=== PATIENT | female | born 1925 | race Caucasian/White ===

== ENCOUNTER 2017-05-22 23:45 | Inpatient (IN) | payer BC, MEDICARE ==
[~2017-05-22] VITALS: Ht 160 cm; Wt 73.9 kg
[2017-05-23 00:10] VITALS: BP 52/63
[2017-05-23 00:44] LABS: BASOPHILS % (AUTO) 1.2 % (0.0-2.0); LYMPHOCYTES % (AUTO) 17.2 % (20.0-45.0); MEAN CORPUSCULAR HEMOGLOBIN 29.5 PG (27.0-31.0); MEAN CORPUSCULAR HGB CONC 31.4 G/DL (32.0-36.0); MEAN CORPUSCULAR VOLUME 94 FL (80-99); MONOCYTES % (AUTO) 10.2 % (1.0-10.0); NEUTROPHILS % (AUTO) 69.5 % (45.0-75.0); PLATELET COUNT 314 K/UL (150-450); RED BLOOD COUNT 3.68 M/UL (4.20-5.40); WHITE BLOOD COUNT 11.2 K/UL (4.8-10.8)
[2017-05-23 01:01] LABS: ALANINE AMINOTRANSFERASE 20 U/L (12-78); ALBUMIN/GLOBULIN RATIO 0.6 (1.0-2.7); ANION GAP 7 mmol/L (5-15); ASPARTATE AMINO TRANSFERASE 30 U/L (15-37); CARBON DIOXIDE 29 MMOL/L (21-32); CHLORIDE 100 MMOL/L (98-107); CREATININE 0.7 MG/DL (0.55-1.30); POTASSIUM 4.2 MMOL/L (3.5-5.1); SODIUM 136 MMOL/L (136-145); TOTAL PROTEIN 6.5 G/DL (6.4-8.2)
[2017-05-23 01:10] LABS: CKMB 0.5 NG/ML (0.0-3.6)
[2017-05-23] MEDS ORDERED: Pantoprazole Inj IVP ONE (01:45)
--- NOTE | 2017-05-23 01:52 | Emergency Room Report ---
History of Present Illness General Chief Complaint: Chest Pain Source: Medical Record Present Illness HPI [id number] BIBEMS for chest pressure today Associated with hiccups Denies SOB, nausea/vomiting, fever/chills Recent long admission for PNA at [facility] - today finished last of 3 Abx for "complicated PNA" per family member Paperwork from SNF shows HUGE list of medical problems too numerous to record here Please see paperwork from SNF Of note, DM, HTN, lung Ca, HLD, NSTEMI, pleural effusion Was given ASA and nitro by EMS Allergies: Coded Allergies: AZITHROMYCIN (Verified Allergy, Unknown, 05/22/17) CICLESONIDE (Verified Allergy, Unknown, 05/22/17) CODEINE (Verified Allergy, Unknown, 09/25/11) METHYLPREDNISOLONE (Verified Allergy, Unknown, 05/22/17) PENICILLINS (Verified Allergy, Unknown, 09/25/11) Patient History Past Medical History: other - See HPI Past Surgical History: none Pertinent Family History: none Social History: Denies: smoking, alcohol use, drug use Last Menstrual Period: NA Now: No Immunizations: UTD Reviewed Nursing Documentation: PMH: Agreed, PSxH: Agreed Nursing Documentation-PMH Hx Hypertension: Yes Hx Diabetes: Yes - dm type 2 Hx Cancer: Yes - lung cancer Review of Systems All Other Systems: negative except mentioned in HPI Physical Exam Vital Signs Date Time Temp Pulse Resp B/P (MAP) Pulse Ox O2 Delivery O2 Flow Rate FiO2 05/22/17 23:37 133 22 150/68 94 Nasal Cannula 6.0 05/23/17 00:10 97.2 Sp02 EP Interpretation: reviewed, normal General Appearance: normal inspection, well appearing, no apparent distress, alert Head: atraumatic ENT: normal ENT inspection, hearing grossly normal, normal voice Neck: normal inspection, full range of motion, supple, no bony tend Respiratory: normal inspection, lungs clear, normal breath sounds, no respiratory distress, no retraction, no wheezing Cardiovascular #1: regular rate, rhythm, no edema Gastrointestinal: normal inspection, normal bowel sounds, non tender, soft, no guarding, no hernia Genitourinary: no CVA tenderness Musculoskeletal: normal inspection, back normal, normal range of motion, Norma' s Sign negative Neurologic: normal inspection, alert, responsive, speech normal Psychiatric: normal inspection, judgement/insight normal, mood/affect normal Skin: normal inspection, normal color, no rash Medical Decision Making Medicare Attestation I Mando Winslow MD hereby attest that the medical record entry for date of service, 05/23/17 accurately reflects signatures/notations that I made in my capacity as MD when I treated/diagnosed the above listed Medicare beneficiary. I attest that this information is true, accurate and complete to the best of my knowledge. I understand that any falsification, omission, or concealment of material fact may subject me to administrative, civil, or criminal liability. This patient warrants hospital admission for extreme of age and has a condition that cannot be treated as outpatient. Diagnostic Impression: Primary Impression: Chest pain Qualified Codes: R07.9 - Chest pain, unspecified ER Course Continued chest pressure in ED ECG is NSR. No ischemia Troponin WNL Mild leuks. H&H stable Mild BNP elevation Will need ACS rule out, admission Endorsed to Dr Zimmer at 151am for tele admission EKG Diagnostic Results Rate: normal Rhythm: NSR ST Segments: no acute changes ASA given to the pt in ED: No Rhythm Strip Diag. Results EP Interpretation: yes Rate: 109 Rhythm: NSR - 109 Chest X-Ray Diagnostic Results Chest X-Ray Diagnostic Results : Chest X-Ray Ordered: Yes # of Views/Limited/Complete: 1 View Indication: Chest Pain EP Interpretation: Yes Interpretation: no consolidation, no pneumothorax, other - Cardiomegaly, left sided pleural effusion Last Vital Signs Date Time Temp Pulse Resp B/P (MAP) Pulse Ox O2 Delivery O2 Flow Rate FiO2 05/23/17 00:10 97.2 113 18 52/63 97 Nasal Cannula 6.0 Status: improved Disposition: ADMITTED INPATIENT Condition: Serious Referrals: CECY GEE (PCP) MANDO WINSLOW M.D. May 23, 2017 01:52
[2017-05-23 02:16] VITALS: BP 154/55
[2017-05-23] MEDS ORDERED: ACETYLCYST200 MG/1 M HHN (02:18)
[2017-05-23] MEDS ORDERED: MULTIVITAMINS1 EAC2 ORAL (02:25)
[2017-05-23] MEDS ORDERED: VITAMIN D1000 UNI1 ORAL ×2 (02:25→05:37)
[2017-05-23] MEDS ORDERED: TRAZODONE HCL150 MG ORAL (02:25)
[2017-05-23] MEDS ORDERED: CREON DR 24,001 EACH PO (02:25)
[2017-05-23] MEDS ORDERED: PANTOPRAZOLE SO40 MG ORAL (02:25)
[2017-05-23] MEDS ORDERED: FLUOXETINE HCL20 MG ORAL (02:25)
[2017-05-23] MEDS ORDERED: [UNRECOGNIZED DRUG - OTHER] IV (02:25)
[2017-05-23] MEDS ORDERED: LOVENOX10 M3 SUBQ (02:25)
[2017-05-23] MEDS ORDERED: GUAIFENESI100 MG/5 M ORAL (02:25)
[2017-05-23] MEDS ORDERED: IPRATROPIU0.2 MG/1 M HHN (02:25)
[2017-05-23] MEDS ORDERED: ACIDOPHILUS1 EAC6 PO (02:25)
[2017-05-23] MEDS ORDERED: FLUTICASONE PRO16 G1 NASAL (02:25)
[2017-05-23] MEDS ORDERED: METRONIDAZOLE500 MG ORAL (05:37)
[2017-05-23] MEDS ORDERED: FUROSEMIDE40 MG/5 ML ORAL (05:37)
[2017-05-23] MEDS ORDERED: HUMALOG100 UNIT/3 SUBQ (05:37)
[2017-05-23] MEDS ORDERED: CEFEPIME-D2 GM/50 ML IVPB (05:37)
[2017-05-23] MEDS ORDERED: Enalaprilat 2.5mg/2ml Inj IV PRN (06:15)
[2017-05-23] MEDS ORDERED: Nitroglycerin Subl 0.4mg tab SL PRN (06:15)
[2017-05-23] MEDS ORDERED: Ketorolac 30mg Inj IV PRN (06:15)
[2017-05-23] MEDS ORDERED: dilTIAZem HCl 25mg/5ml Inj IV PRN (06:15)
[2017-05-23] MEDS ORDERED: Miralax 17gm pkt ORAL PRN (06:15)
[2017-05-23] MEDS: NovoLOG Insulin Flexpen SUBQ SCH ×4 (06:30→20:45)
[2017-05-23 08:00] VITALS: BP 151/76
[2017-05-23] MEDS ORDERED: Heparin 5000 units/ml inj SUBQ SCH (09:00)
[2017-05-23] MEDS ORDERED: Aspirin Baby 81mg ORAL SCH (09:00)
[2017-05-23 11:53] VITALS: BP 151/70
--- NOTE | 2017-05-23 12:33 | History and Physical ---
History of Present Illness General Date patient seen: May 23, 2017 Reason for Hospitalization: Chest Pain Present Illness HPI 89 year old female with hx of DM, HTN, lung Ca, HLD, NSTEMI, DVT, pleural effusion, from [facility] brought in by paramedics with CC of chest pressure today Denies SOB, nausea/vomiting, fever/chills. She had a recent admission for PNA at [facility] - Was given ASA and nitro by EMS. She is admitted to telemetry for acute chest pain. Her WBC was elevated and some cough. She was thought to have some pneumonia as well. Allergies: Coded Allergies: AZITHROMYCIN (Verified Allergy, Unknown, 05/22/17) CICLESONIDE (Verified Allergy, Unknown, 05/22/17) CODEINE (Verified Allergy, Unknown, 09/25/11) METHYLPREDNISOLONE (Verified Allergy, Unknown, 05/22/17) PENICILLINS (Verified Allergy, Unknown, 09/25/11) Medication History Scheduled Acetylcysteine* (Acetylcysteine*), 200 MG HHN Q8HR, (Reported) Cefepime Hcl/D5w (Cefepime-Dextrose 2 Gm/50 Ml), 2 GM IVPB DAILY, (Reported) Cholecalciferol (Vitamin D3)* (Vitamin D*), 1,000 UNIT ORAL DAILY, (Reported) Cholecalciferol (Vitamin D3)* (Vitamin D*), 1,000 UNIT ORAL DAILY, (Reported) Enoxaparin* (Lovenox*), 100 MG SUBQ DAILY, (Reported) Fluoxetine Hcl* (Fluoxetine Hcl*), 20 MG ORAL DAILY, (Reported) Fluticasone Propionate* (Fluticasone Propionate*), 2 SPRAY NASAL DAILY, ( Reported) Furosemide (Furosemide), 200 MG ORAL DAILY, (Reported) Guaifenesin* (Guaifenesin), 10 ML ORAL Q4H, (Reported) Lactobacillus Acidophilus (Acidophilus), 1 EACH PO BID, (Reported) Metronidazole* (Flagyl*), 500 MG ORAL EVERY 8 HOURS, (Reported) Multivitamins* (Multivitamins*), 1 TAB ORAL DAILY, (Reported) Pantoprazole* (Pantoprazole*), 40 MG ORAL DAILY, (Reported) Trazodone* (Trazodone*), 50 MG ORAL BEDTIME, (Reported) Scheduled PRN Ipratropium [place] 0.5MG/2.5ML (Ipratropium [place] 0.5MG/2.5ML), 0.5 MG HHN Q8HR PRN for Shortness of Breath, (Reported) Miscellaneous Medications Heparin Sodium,Porcine/Pf (Heparin 100 Unit/10 ml (10/ml)), 10 UNIT IV, ( Reported) Insulin Lispro (Humalog), 0 SUBQ, (Reported) Lipase/Protease/Amylase (Creon Dr 24,000 Units Capsule), 1 EACH PO, (Reported) Patient History Healthcare decision maker Clara Saez Resuscitation status Do Not Resuscitate Advanced Directive on File No Review of Systems Constitutional: Reports: malaise, weakness Respiratory: Reports: cough Physical Exam General Appearance: WD/WN, lethargic Lines, tubes and drains: peripheral HEENT: normocephalic, anicteric Neck: non-tender, supple, limited range of motion Respiratory/Chest: lungs clear Breasts: no masses Cardiovascular/Chest: normal rate, regular rhythm, no gallop/murmur Last 24 Hour Vital Signs Date Time Temp Pulse Resp B/P (MAP) Pulse Ox O2 Delivery O2 Flow Rate FiO2 05/23/17 11:53 98.1 95 20 151/70 97 Nasal Cannula 3.0 05/23/17 08:58 83 18 Nasal Cannula 3.0 05/23/17 08:00 88 05/23/17 08:00 97.7 101 20 151/76 95 Nasal Cannula 6.0 05/23/17 02:54 97.2 111 22 154/55 97 Nasal Cannula 6.0 05/23/17 02:16 97.2 111 22 154/55 97 Nasal Cannula 6.0 05/23/17 00:10 97.2 113 18 52/63 97 Nasal Cannula 6.0 05/23/17 00:10 113 18 Nasal Cannula 6.0 05/22/17 23:37 133 22 150/68 94 Nasal Cannula 6.0 Intake and Output 05/23/17 05/24/17 19:00 07:00 Intake Total 120 ml Output Total 300 ml Balance -180 ml Intake Oral 120 ml Output Urine Total 300 ml Laboratory Tests Test 05/23/17 00:24 05/23/17 06:50 White Blood Count 11.2 K/UL (4.8-10.8) H Red Blood Count 3.68 M/UL (4.20-5.40) L Hemoglobin 10.9 G/DL (12.0-16.0) L Hematocrit 34.6 % (37.0-47.0) L Mean Corpuscular Volume 94 FL (80-99) Mean Corpuscular Hemoglobin 29.5 PG (27.0-31.0) Mean Corpuscular Hemoglobin Concent 31.4 G/DL (32.0-36.0) L Red Cell Distribution Width 16.0 % (11.6-14.8) H Platelet Count 314 K/UL (150-450) Mean Platelet Volume 6.0 FL (6.5-10.1) L Neutrophils (%) (Auto) 69.5 % (45.0-75.0) Lymphocytes (%) (Auto) 17.2 % (20.0-45.0) L Monocytes (%) (Auto) 10.2 % (1.0-10.0) H Eosinophils (%) (Auto) 2.0 % (0.0-3.0) Basophils (%) (Auto) 1.2 % (0.0-2.0) Sodium Level 136 MMOL/L (136-145) Potassium Level 4.2 MMOL/L (3.5-5.1) Chloride Level 100 MMOL/L (98-107) Carbon Dioxide Level 29 MMOL/L (21-32) Anion Gap 7 mmol/L (5-15) Blood Urea Nitrogen 15 mg/dL (7-18) Creatinine 0.7 MG/DL (0.55-1.30) Estimat Glomerular Filtration Rate mL/min (>60) Glucose Level 115 MG/DL (74-106) H Calcium Level 10.0 MG/DL (8.5-10.1) Total Bilirubin 0.3 MG/DL (0.2-1.0) Aspartate Amino Transf (AST/SGOT) 30 U/L (15-37) Alanine Aminotransferase (ALT/SGPT) 20 U/L (12-78) Alkaline Phosphatase 114 U/L (46-116) Total Creatine Kinase 19 U/L (26-308) L Creatine Kinase MB 0.5 NG/ML (0.0-3.6) Creatine Kinase MB Relative Index 2.6 Troponin I 0.006 ng/mL (0.000-0.056) 0.226 ng/mL (0.000-0.056) Pro-B-Type Natriuretic Peptide 328 pg/mL (0-125) H Total Protein 6.5 G/DL (6.4-8.2) Albumin 2.5 G/DL (3.4-5.0) L Globulin 4.0 g/dL Albumin/Globulin Ratio 0.6 (1.0-2.7) L Height (Feet): 5 Height (Inches): 3.00 Weight (Pounds): 163 Medications Current Medications Medications (Trade) Dose Ordered Sig/Emanuel Route PRN Reason Start Time Stop Time Status Last Admin Dose Admin Acetaminophen (Tylenol) 650 mg Q4H PRN ORAL FEVER 05/23/17 06:15 06/22/17 06:14 Albuterol/ Ipratropium (Albuterol/ Ipratropium) 3 ml Q4H PRN HHN Shortness of Breath 05/23/17 06:15 05/28/17 06:14 Aztreonam 1 gm/ Sodium Chloride 50 ml @ 100 mls/hr EVERY 8 HOURS IVPB 05/23/17 14:00 05/30/17 13:59 UNV Chlorhexidine Gluconate ([place]-Hex 2%) 1 applic DAILY@2000 TOPIC 05/23/17 20:00 06/22/17 19:59 Dextrose (Dextrose 50%) STAT PRN IV Hypoglycemia 05/23/17 06:15 06/22/17 06:14 Diltiazem HCl (Cardizem) 10 mg Q1H PRN IV heart rate more than 120, 05/23/17 06:15 06/22/17 06:14 Enalaprilat (Vasotec) 2.5 mg Q6H PRN IV sbp more than 160 05/23/17 06:15 06/22/17 06:14 Enoxaparin Sodium (Lovenox) 100 mg DAILY SUBQ 05/23/17 21:00 06/22/17 20:59 UNV Insulin Aspart (NovoLOG) BEFORE MEALS AND HS SUBQ 05/23/17 06:30 06/22/17 06:29 Nitroglycerin (Ntg) 0.4 mg Every 5 Minutes PRN SL Prn Chest Pain 05/23/17 06:15 06/22/17 06:14 Ondansetron HCl (Zofran) 4 mg Q6H PRN IVP Nausea & Vomiting 05/23/17 06:15 06/22/17 06:14 Polyethylene Glycol (Miralax) 17 gm DAILYPRN PRN ORAL Constipation 05/23/17 06:15 06/22/17 06:14 Temazepam (Restoril) 15 mg HSPRN PRN ORAL Insomnia 05/23/17 06:15 05/30/17 06:14 Trazodone HCl (Desyrel) 50 mg BEDTIME ORAL 05/23/17 21:00 06/22/17 20:59 Assessment/Plan Problem List: (1) Pneumonia ICD Codes: J18.9 - Pneumonia, unspecified organism SNOMED: 569431512 (2) ACS (acute coronary syndrome) ICD Codes: I24.9 - Acute ischemic heart disease, unspecified SNOMED: 760846698 (3) At high risk for aspiration ICD Codes: Z91.89 - Other specified personal risk factors, not elsewhere classified SNOMED: 374328848 (4) History of DVT (deep vein thrombosis) ICD Codes: Z86.718 - Personal history of other venous thrombosis and embolism SNOMED: 237442546 (5) Diabetes mellitus ICD Codes: E11.9 - Type 2 diabetes mellitus without complications SNOMED: 48279736 (6) History of lung cancer ICD Codes: Z85.118 - Personal history of other malignant neoplasm of bronchus and lung SNOMED: 339218965, 594535928 (7) COPD (chronic obstructive pulmonary disease) ICD Codes: J44.9 - Chronic obstructive pulmonary disease, unspecified SNOMED: 08110221 Assessment/Plan check sputum sputum induction respiratory treatment IV abx ( aztreonam) echo cardio to see ID to see might have to dc PICC line. CATARINA HAMILTON May 23, 2017 12:33
--- NOTE | 2017-05-23 12:58 | Diagnostic Imaging Report ---
Indication: Resting Comparison: 09/25/11 A single view chest radiograph was obtained. Findings: There is evidence of a left pleural effusion. There is evidence of interstitial edema with mild cardiomegaly. Bones are osteopenic. Impression: Essentially edema. Moderate left pleural effusion suspected. There are superimposed infiltrate especially in the left lung not excluded.
[2017-05-23] MEDS ORDERED: Enoxaparin Sodium 300mg/3ml vial SUBQ SCH (14:00)
--- NOTE | 2017-05-23 14:05 | Consultation ---
Consult Note Consult Note [facility] # [id number] SIDRA ALLEN M.D. May 23, 2017 14:05
[2017-05-23] MEDS: Aztreonam Inj 1 GM in NS 50 ML IVPB SCH ×2 (14:14→20:46)
[2017-05-23] MEDS: Albuterol/Ipratropium 3ml neb HHN PRN (15:04)
--- NOTE | 2017-05-23 15:18 | Cardiology Report ---
APPROVED REPORT EXAM: Two-dimensional and M-mode echocardiogram with Doppler and color Doppler. INDICATION Chest Pain M-Mode DIMENSIONS IVSd1.9 (0.7-1.1cm)Left Atrium (MM)4.3 (1.6-4.0cm) LVDd4.2 (3.5-5.6cm)Aortic Root2.8 (2.0-3.7cm) PWd0.6 (0.7-1.1cm)Aortic Cusp Exc.1.2 (1.5-2.0cm) LVDs2.4 (2.5-4.0cm) PWs1.4 cm Normal left ventricular chamber size, systolic function and wall motion. Left ventricular ejection fraction estimated to be 60-65 %. Moderate left ventricular hypertrophy. No evidence of pericardial effusion. Left atrial size at upper limits of normal. Right cardiac chamber sizes are within normal limits. Aortic valve calcification with decreased cusp excursion c/w mild aortic stenosis. Severe calcification of mitral valve leaflets with normal excursion. Mitral annulus and aortic root calcification. Normal pulmonic valve structure. Normal tricuspid valve structure. IVC at normal size with physiologic collapse. A color flow and spectral Doppler study was performed and revealed: Mild aortic regurgitation. Peak aortic valve gradient of 23 mmHg and a mean of 16 mmHg. Aortic valve area 1.4 cm2 calculated by continuity equation suggestive of mild aortic stenosis. Trace to mild mitral regurgitation. Mitral diastolic velocities suggest reduced left ventricular relaxation c/w impaired relaxation grade one diastolic dysfunction. Mild tricuspid regurgitation. Tricuspid systolic velocities suggests peak right ventricular systolic pressure of 50 mmHg, consistent with moderate pulmonary hypertension. Mild pulmonic regurgitation present.
--- NOTE | 2017-05-23 15:26 | Cardiology Report ---
APPROVED REPORT EKG Measurement Heart [id number] LA [id number] Sinus tachycardia Otherwise normal ECG
[2017-05-23 16:01] VITALS: BP 143/69
--- NOTE | 2017-05-23 18:13 | Cardiology Progress Note ---
Assessment/Plan Assessment/Plan full note dicataed repeat blood test ecotrin 81 mg dialy for nwo repeat ekg [id number] Objective Last 24 Hour Vital Signs Date Time Temp Pulse Resp B/P (MAP) Pulse Ox O2 Delivery O2 Flow Rate FiO2 05/23/17 16:01 97.7 102 18 143/69 94 Room Air 05/23/17 16:00 104 05/23/17 15:11 96 16 98 Nasal Cannula 3.0 32 05/23/17 15:04 98 16 93 Nasal Cannula 3.0 32 05/23/17 12:00 90 05/23/17 11:53 98.1 95 20 151/70 97 Nasal Cannula 3.0 05/23/17 08:58 83 18 Nasal Cannula 3.0 05/23/17 08:00 88 05/23/17 08:00 97.7 101 20 151/76 95 Nasal Cannula 6.0 05/23/17 02:54 97.2 111 22 154/55 97 Nasal Cannula 6.0 05/23/17 02:16 97.2 111 22 154/55 97 Nasal Cannula 6.0 05/23/17 00:10 97.2 113 18 52/63 97 Nasal Cannula 6.0 05/23/17 00:10 113 18 Nasal Cannula 6.0 05/22/17 23:37 133 22 150/68 94 Nasal Cannula 6.0 Intake and Output 05/23/17 05/24/17 19:00 07:00 Intake Total 360 ml Output Total 450 ml Balance -90 ml Intake Oral 360 ml Output Urine Total 450 ml Laboratory Tests Test 05/23/17 00:24 05/23/17 06:50 White Blood Count 11.2 K/UL (4.8-10.8) H Red Blood Count 3.68 M/UL (4.20-5.40) L Hemoglobin 10.9 G/DL (12.0-16.0) L Hematocrit 34.6 % (37.0-47.0) L Mean Corpuscular Volume 94 FL (80-99) Mean Corpuscular Hemoglobin 29.5 PG (27.0-31.0) Mean Corpuscular Hemoglobin Concent 31.4 G/DL (32.0-36.0) L Red Cell Distribution Width 16.0 % (11.6-14.8) H Platelet Count 314 K/UL (150-450) Mean Platelet Volume 6.0 FL (6.5-10.1) L Neutrophils (%) (Auto) 69.5 % (45.0-75.0) Lymphocytes (%) (Auto) 17.2 % (20.0-45.0) L Monocytes (%) (Auto) 10.2 % (1.0-10.0) H Eosinophils (%) (Auto) 2.0 % (0.0-3.0) Basophils (%) (Auto) 1.2 % (0.0-2.0) Sodium Level 136 MMOL/L (136-145) Potassium Level 4.2 MMOL/L (3.5-5.1) Chloride Level 100 MMOL/L (98-107) Carbon Dioxide Level 29 MMOL/L (21-32) Anion Gap 7 mmol/L (5-15) Blood Urea Nitrogen 15 mg/dL (7-18) Creatinine 0.7 MG/DL (0.55-1.30) Estimat Glomerular Filtration Rate mL/min (>60) Glucose Level 115 MG/DL (74-106) H Calcium Level 10.0 MG/DL (8.5-10.1) Total Bilirubin 0.3 MG/DL (0.2-1.0) Aspartate Amino Transf (AST/SGOT) 30 U/L (15-37) Alanine Aminotransferase (ALT/SGPT) 20 U/L (12-78) Alkaline Phosphatase 114 U/L (46-116) Total Creatine Kinase 19 U/L (26-308) L Creatine Kinase MB 0.5 NG/ML (0.0-3.6) Creatine Kinase MB Relative Index 2.6 Troponin I 0.006 ng/mL (0.000-0.056) 0.226 ng/mL (0.000-0.056) Pro-B-Type Natriuretic Peptide 328 pg/mL (0-125) H Total Protein 6.5 G/DL (6.4-8.2) Albumin 2.5 G/DL (3.4-5.0) L Globulin 4.0 g/dL Albumin/Globulin Ratio 0.6 (1.0-2.7) L ANDREZ HAMMOND May 23, 2017 18:13
[2017-05-23] MEDS: Aspirin EC 81mg tab ORAL SCH (19:00)
[2017-05-23 20:00] VITALS: BP 135/66
[2017-05-23] MEDS: TraZODone 50mg tab ORAL SCH (20:43)
[2017-05-23] MEDS: Dyna-Hex 2% Top Sol 2oz TOPIC SCH (20:44)
[2017-05-23] MEDS: Enoxaparin 100mg Inj SUBQ SCH (20:44)
--- NOTE | 2017-05-23 20:45 | Consultation ---
DATE OF CONSULTATION: 05/23/2017 INFECTIOUS DISEASE CONSULTATION CONSULTING PHYSICIAN: Avinash Gudino M.D. REQUESTING PHYSICIAN: Humberto Zimmer M.D. REASON FOR CONSULTATION: Evaluation of the patient for pneumonia. HISTORY OF PRESENT ILLNESS: The patient is an 89-year-old female with multiple medical problems as listed below who was admitted recently to [facility]. Apparently the patient had prolonged hospitalization course for pneumonia and also developed DVT. This information is not clear. The [facility] cefepime and Flagyl for continued antibiotic treatment, however, the patient's cough has worsened and because of that the patient was brought to the hospital. Infectious Disease consultation has been requested for further evaluation of the patient and antibiotic management. PAST MEDICAL HISTORY: 1. Hypertension. 2. Diabetes. 3. History of lung cancer. 4. Hyperlipidemia. 5. NSTEMI. 6. History of DVT. 7. Pleural effusion. 8. History of pancreatitis. MEDICATION: The patient is on aztreonam. ALLERGIES: Zithromax and penicillin (rash). The patient has been tolerating cephalosporin. SOCIAL HISTORY: The patient lives at home. Prior to this admission, the patient was in rehabilitation. REVIEW OF SYSTEMS: HEENT: No recent change in vision or hearing. PULMONARY: As mentioned above. CARDIOVASCULAR: No chest pain or palpitation. GASTROINTESTINAL/ABDOMEN: No nausea or vomiting. GENITOURINARY: No dysuria. MUSCULOSKELETAL: No pain in extremities. NEUROLOGIC: No history of seizure. PHYSICAL EXAMINATION: VITAL SIGNS: Temperature 98.1, blood pressure 151/70, pulse 86, and respiratory rate 18. HEENT: No pale conjunctivae. No icterus. NECK: No lymphadenopathy. CHEST: Coarse breathing sounds. HEART: S1 and S2. ABDOMEN: Soft and nontender. EXTREMITIES: No cyanosis. NEUROLOGIC: Awake and alert. LABORATORY DATA: WBC 11, hemoglobin 10, and platelets 314,000. BUN 15 and creatinine 0.7. Liver function tests unremarkable. Chest x-ray, moderate left pleural effusion, superimposed left lung cannot be excluded. ASSESSMENT: The patient is an 89-year-old female with multiple medical problems, who has prolonged history of hospitalization in [facility], details of that is not clear now. The patient has: 1. Mild leukocytosis. 2. Cough. 3. History of allergies to Zithromax and penicillin (rash). The patient has been tolerating cephalosporin. PLAN: 1. We will continue the patient on intravenous aztreonam. 2. Monitor CBC. 3. Monitor BMP. 4. Monitor cultures (sputum and urine). 5. We will order CT of the chest. 6. We will ask [facility] to send the records regarding previous cultures. 7. Based on the patient's clinical course and labs, we will do further recommendation. Thank you, Dr. Zimmer, for allowing me to participate in the care of this patient. I will follow the patient with you during this hospitalization. Avinash Gudino M.D. DR: ADINA JOB#: [id number] CC:
[2017-05-24] MEDS: Aztreonam Inj 1 GM in NS 50 ML IVPB SCH ×3 (06:00→21:48)
[2017-05-24] MEDS: NovoLOG Insulin Flexpen SUBQ SCH ×4 (06:22→20:20)
[2017-05-24 06:29] LABS: BASOPHILS % (AUTO) 1.5 % (0.0-2.0); EOSINOPHILS % (AUTO) 3.6 % (0.0-3.0); LYMPHOCYTES % (AUTO) 34.1 % (20.0-45.0); MEAN CORPUSCULAR HEMOGLOBIN 28.8 PG (27.0-31.0); MEAN CORPUSCULAR HGB CONC 29.7 G/DL (32.0-36.0); MEAN CORPUSCULAR VOLUME 97 FL (80-99); MEAN PLATELET VOLUME 6.1 FL (6.5-10.1); MONOCYTES % (AUTO) 12.9 % (1.0-10.0); NEUTROPHILS % (AUTO) 47.8 % (45.0-75.0); PLATELET COUNT 232 K/UL (150-450); RED BLOOD COUNT 3.16 M/UL (4.20-5.40); RED CELL DISTRIBUTION WIDTH 16.1 % (11.6-14.8); WHITE BLOOD COUNT 6.2 K/UL (4.8-10.8)
[2017-05-24 06:44] LABS: PROTHROMBIN TIME 10.8 SEC (9.30-11.50)
[2017-05-24 06:56] LABS: ALANINE AMINOTRANSFERASE 20 U/L (12-78); ALBUMIN/GLOBULIN RATIO 0.6 (1.0-2.7); ANION GAP 1 mmol/L (5-15); ASPARTATE AMINO TRANSFERASE 24 U/L (15-37); CALCIUM 8.8 MG/DL (8.5-10.1); CARBON DIOXIDE 34 MMOL/L (21-32); CHLORIDE 106 MMOL/L (98-107); CREATININE 0.6 MG/DL (0.55-1.30); CRP QUANT 1.9 mg/dL (0.00-0.90); POTASSIUM 4.1 MMOL/L (3.5-5.1); SODIUM 141 MMOL/L (136-145); TOTAL PROTEIN 5.8 G/DL (6.4-8.2)
[2017-05-24 07:27] LABS: CHOLESTEROL 171 MG/DL (< 200); CHOLESTEROL/HDL RATIO 4.3 (3.3-4.4)
--- NOTE | 2017-05-24 07:30 | Consultation ---
DATE OF CONSULTATION: 05/23/2017 CARDIOLOGY CONSULTATION CONSULTING PHYSICIAN: Ari Meeks M.D. REFERRING PHYSICIAN: Humberto Zimmer M.D. REASON FOR REFERRAL: Chest pain. HISTORY OF PRESENT ILLNESS: This is an 89-year-old female, who is a resident of convalescent facility recently, having been treated at [facility] and subsequently discharged to that facility, who presented to the hospital because of chest pains. Three episodes of chest pain apparently as I understand yesterday as a tight sensation in the center of chest. There was no radiation to the neck, arm, or back. The pains each lasted approximately 10 to 15 minutes, recurred on three separate occasions. She did receive nitroglycerin after two of those and she is no longer having chest pain today. She has had occasional chest pains according to her son previously. She does not have any PND or orthopnea, although she uses 2-1/2 pillows to sleep with. She does have palpitation. She does not have dizziness or lightheadedness. She has been in a convalescent facility trying to recover from a long-term hospitalization and she just started to walk. She does not have any chest pains or shortness of breath with walking. PAST MEDICAL HISTORY: Positive for history of, 1. Angina and chest discomfort, treated with nitroglycerin with a negative stress test and no angiogram apparently performed, this is as far back as 2010 per the records from [facility]. 2. She has had blood transfusion. 3. She has diabetes mellitus type 2. 4. Diverticulosis. 5. Hypertension. 6. Macular degeneration. 7. Malignant neoplasm of the lungs. 8. Hyperlipidemia. 9. Pancreatic cyst. 10. Primary lung cancer. 11. Cerebrovascular disease with infarction. 12. She has a history of appendectomy, carotid endarterectomy, cataract removal, hysterectomy, lung biopsy, lobectomy, and permanent dilatation of left main bronchus with deployment of a stent. 13. The patient has a history cancer, status post resection in 1990, radiation therapy. 14. Gastroesophageal reflux disease. 15. Depression 16. Sepsis. 17. Parainfluenza, likely bacterial pneumonia with acute respiratory failure, ARDS, requiring BiPAP treatment. ALLERGIES: She is allergic to [place], azithromycin, codeine, Medrol, and penicillin. SOCIAL HISTORY: She used to smoke some 30 years ago. No drinking of alcoholic beverages. She lives at the present time in a convalescent facility, otherwise, at home previous to that. REVIEW OF SYSTEMS: GASTROINTESTINAL: She denies. GENITOURINARY: She denies. PULMONARY: She has some coughing for the past two days. CONSTITUTIONAL: Denies. NEUROLOGICAL: Negative. PHYSICAL EXAMINATION: GENERAL: Physical examination shows her to be obese elderly female, in no respiratory distress. NECK: Supple. No jugular venous distention. No abdominojugular reflux. LUNGS: Clear to auscultation and percussion. CARDIAC: S1 is normal. S2 is normal. Regular rate and rhythm. Systolic ejection murmur is noted that radiates up to the aortic band. ABDOMEN: Soft and nontender. Positive bowel sounds. EXTREMITIES: There is no clubbing or cyanosis. No edema. NEUROLOGICAL: She is awake, alert, responsive, and in no apparent distress. LABORATORY AND DIAGNOSTIC DATA: White count 11.2, hemoglobin 10.9, and platelet count of 314. Sodium is 136, potassium 4.2, chloride 100, bicarbonate 29, BUN of 15, creatinine 0.7, glucose of 115. ProBNP was only 328. Albumin 2.5. Troponin of 0.06, subsequently . Her imaging, chest x-ray showed moderate left-sided pleural effusion, suspected evidence of interstitial edema, and mild cardiomegaly. An echocardiogram had shown moderate left ventricular hypertrophy, normal LV function and ejection fraction, peak gradient of 23, mean gradient of 60 across the aortic valve with valve area of 1.4, diastolic relaxation abnormality, and pulmonary artery systolic pressure in the 50s. Tele, sinus, rate of 104, at times down to the 90s. Electrocardiogram shows sinus, normal QRS axis. No ST or T-wave abnormalities of any significant degree. ASSESSMENT AND PLAN: 1. Chest pain. 2. Left-sided pleural effusion. 3. Diabetes mellitus. 4. "History of angina with a negative prior stress test reportedly according to the [facility] records." 5. History of neoplasm of the lung, status post wedge resection and radiation therapy to right upper lobe lesion. Dr. Zimmer, this patient was seen in cardiac consultation. The patient has had some chest pain on three occasions, each about 10 to 15 minutes with pressure sensation. She has had four sets of cardiac enzymes that were negative, of which a second set increasing up to . She no longer has any of the chest pain. I am concerned about her coronary status in light of the fact that her troponin has gone up a bit. I would recommend repeating cardiac enzymes again tomorrow morning. Her echocardiogram, however, does not show any segmental wall motion abnormalities. I discussed the case with the patient's son. Likely, we would require stress testing to be performed in light of her abnormal cardiac enzymes. I have recommended those to the patient's son and the son is somewhat hesitant in terms of having his mother taking the recommended antibiotics by herself, but is agreeable to having at least the next couple of sets of blood tests for cardiac enzymes performed and await our recommendations, which will be brought up tomorrow once remainder of the cardiac enzymes are available. Ari Meeks M.D. DR: Wilfredo JOB#: [id number] CC:
--- NOTE | 2017-05-24 07:34 | Cardiology Progress Note ---
Assessment/Plan Assessment/Plan chest pain abn cardiac enzyme dm htn trop pattern concerning for underling cad trop better but not back down will need to consider ischemic evaluation once trop is back to normal if pt and family agreeable , keep on ecotrin and statin for now await discussion with son once he comes in and repeat trop results ekg reviewed all are normal low dose bb Subjective Cardiovascular: Denies: chest pain, lightheadedness Respiratory: Denies: shortness of breath Gastrointestinal/Abdominal: Denies: abdominal pain Genitourinary: Denies: burning Objective Last 24 Hour Vital Signs Date Time Temp Pulse Resp B/P (MAP) Pulse Ox O2 Delivery O2 Flow Rate FiO2 05/24/17 04:00 75 05/24/17 00:00 83 05/23/17 20:29 79 18 Nasal Cannula 3.0 05/23/17 20:29 Nasal Cannula 2.0 28 05/23/17 20:00 106 05/23/17 20:00 97.2 95 24 135/66 94 Nasal Cannula 05/23/17 16:01 97.7 102 18 143/69 94 Room Air 05/23/17 16:00 104 05/23/17 15:11 96 16 98 Nasal Cannula 3.0 32 05/23/17 15:04 98 16 93 Nasal Cannula 3.0 32 05/23/17 12:00 90 05/23/17 11:53 98.1 95 20 151/70 97 Nasal Cannula 3.0 05/23/17 08:58 83 18 Nasal Cannula 3.0 05/23/17 08:00 88 05/23/17 08:00 97.7 101 20 151/76 95 Nasal Cannula 6.0 General Appearance: no apparent distress, alert Neck: supple Cardiovascular: normal rate, regular rhythm Respiratory/Chest: chest wall non-tender, lungs clear Abdomen: normal bowel sounds, non tender, soft Extremities: no swelling Laboratory Tests Test 05/23/17 20:00 05/24/17 05:10 Troponin I 0.116 ng/mL (0.000-0.056) 0.084 ng/mL (0.000-0.056) White Blood Count 6.2 K/UL (4.8-10.8) Red Blood Count 3.16 M/UL (4.20-5.40) L Hemoglobin 9.1 G/DL (12.0-16.0) L Hematocrit 30.7 % (37.0-47.0) L Mean Corpuscular Volume 97 FL (80-99) Mean Corpuscular Hemoglobin 28.8 PG (27.0-31.0) Mean Corpuscular Hemoglobin Concent 29.7 G/DL (32.0-36.0) L Red Cell Distribution Width 16.1 % (11.6-14.8) H Platelet Count 232 K/UL (150-450) Mean Platelet Volume 6.1 FL (6.5-10.1) L Neutrophils (%) (Auto) 47.8 % (45.0-75.0) Lymphocytes (%) (Auto) 34.1 % (20.0-45.0) Monocytes (%) (Auto) 12.9 % (1.0-10.0) H Eosinophils (%) (Auto) 3.6 % (0.0-3.0) H Basophils (%) (Auto) 1.5 % (0.0-2.0) Prothrombin Time 10.8 SEC (9.30-11.50) Prothromb Time International Ratio 1.0 (0.9-1.1) Activated Partial Thromboplast Time 30 SEC (23-33) Sodium Level 141 MMOL/L (136-145) Potassium Level 4.1 MMOL/L (3.5-5.1) Chloride Level 106 MMOL/L (98-107) Carbon Dioxide Level 34 MMOL/L (21-32) H Anion Gap 1 mmol/L (5-15) L Blood Urea Nitrogen 8 mg/dL (7-18) Creatinine 0.6 MG/DL (0.55-1.30) Estimat Glomerular Filtration Rate mL/min (>60) Glucose Level 104 MG/DL (74-106) Calcium Level 8.8 MG/DL (8.5-10.1) Total Bilirubin 0.3 MG/DL (0.2-1.0) Aspartate Amino Transf (AST/SGOT) 24 U/L (15-37) Alanine Aminotransferase (ALT/SGPT) 20 U/L (12-78) Alkaline Phosphatase 89 U/L (46-116) C-Reactive Protein, Quantitative 1.9 mg/dL (0.00-0.90) H Pro-B-Type Natriuretic Peptide 1194 pg/mL (0-125) H Total Protein 5.8 G/DL (6.4-8.2) L Albumin 2.1 G/DL (3.4-5.0) L Globulin 3.7 g/dL Albumin/Globulin Ratio 0.6 (1.0-2.7) L Triglycerides Level 139 MG/DL (0-200) Cholesterol Level 171 MG/DL (< 200) LDL Cholesterol 103 mg/dL (<100) H HDL Cholesterol 40 MG/DL (40-60) Cholesterol/HDL Ratio 4.3 (3.3-4.4) Thyroid Stimulating Hormone (TSH) Pending ANDREZ HAMMOND May 24, 2017 07:34
[2017-05-24 07:55] LABS: THYROID STIMULATING HORMONE 1.357 uiU/mL (0.360-3.740)
[2017-05-24 08:00] VITALS: BP 141/65
[2017-05-24] MEDS: Aspirin EC 81mg tab ORAL SCH (09:00)
[2017-05-24] MEDS: Metoprolol Tartrate 12.5mg TAB ORAL SCH ×2 (09:03→20:13)
[2017-05-24] MEDS: Albuterol/Ipratropium 3ml neb HHN PRN (10:52)
--- NOTE | 2017-05-24 11:10 | Diagnostic Imaging Report ---
Indication: Chest pain Technique: Continuous helical transaxial imaging of the chest was obtained from the thoracic inlet to the upper abdomen. No intravenous contrast was administered. Coronal 2-D reformats were also obtained. Total Dose length Product (DLP): [address] Dose Index Volume (CTDIvol): 0.15, 20.73 mGy Comparison: none Findings: There is an abnormal wedge-shaped density in the upper medial aspect of the right lung. Medial branch of the right upper lobe bronchus is noted extending into an embedded within this abnormal density, which is likely chronic atelectasis and/or consolidation. There is slight hyperexpansion of the remainder of the right upper lobe. Evaluation is limited by the absence of intravenous contrast not given. Faint calcification noted within this collapsed/consolidated segment. Chronic lung disease noted with reticular nodular densities within both lungs. This appears worse at the left lung base where there is a small pleural effusion as well and more consolidated appearing lung. Pneumonia in this area is not excluded. Please correlate clinically. Patchy groundglass opacities noted as well bilaterally. The aorta is calcified. The mitral annulus is heavily calcified. There is a small pericardial effusion. There is breathing motion which limits evaluation. There is a calcific focus projected over incompletely visualized gallbladder. Impression: Densely consolidated and collapsed segment medial aspect of the right upper lobe accounting for the radiographic density mentioned previously. Evaluation limited by the absence of contrast material. Possible pneumonia left lung base with a small parapneumonic effusion. Please correlate clinically. Chronic lung disease as described above elsewhere. Trace paracardial effusion Atherosclerotic vascular disease. PICC line in good position. Possible gallstones or gallbladder calcification. The CT scanner at [facility] is accredited by the [employer] and the scans are performed using dose optimization techniques as appropriate to a performed exam including Automatic Exposure control.
[2017-05-24 11:56] VITALS: BP 130/56
--- NOTE | 2017-05-24 12:53 | Pulmonology Progress Note ---
Assessment/Plan Problems: (1) Pneumonia (2) ACS (acute coronary syndrome) (3) At high risk for aspiration (4) History of DVT (deep vein thrombosis) (5) Diabetes mellitus (6) History of lung cancer (7) COPD (chronic obstructive pulmonary disease) Assessment/Plan wbc lower CT reviewed, RUL total collapse, c/w hx of lung cancer troponin coming down, needs some sort of stress testing dc planning in progress. Subjective ROS Limited/Unobtainable: No Interval Events: no new complains Constitutional: Reports: no symptoms HEENT: Repors: no symptoms Respiratory: Reports: no symptoms Allergies: Coded Allergies: AZITHROMYCIN (Verified Allergy, Unknown, 05/22/17) CICLESONIDE (Verified Allergy, Unknown, 05/22/17) CODEINE (Verified Allergy, Unknown, 09/25/11) METHYLPREDNISOLONE (Verified Allergy, Unknown, 05/22/17) PENICILLINS (Verified Allergy, Unknown, 09/25/11) Objective Last 24 Hour Vital Signs Date Time Temp Pulse Resp B/P (MAP) Pulse Ox O2 Delivery O2 Flow Rate FiO2 05/24/17 11:56 97.3 96 20 130/56 98 Nasal Cannula 2.0 05/24/17 11:10 103 20 99 Nasal Cannula 3.0 32 05/24/17 10:52 100 20 98 Nasal Cannula 3.0 32 05/24/17 09:03 105 141/65 05/24/17 08:00 97 05/24/17 08:00 97.5 105 21 141/65 95 Nasal Cannula 2.0 05/24/17 07:35 90 18 Room Air 21 05/24/17 07:35 Room Air 21 05/24/17 04:00 75 05/24/17 00:00 83 05/23/17 20:29 79 18 Nasal Cannula 3.0 05/23/17 20:29 Nasal Cannula 2.0 28 05/23/17 20:00 106 05/23/17 20:00 97.2 95 24 135/66 94 Nasal Cannula 05/23/17 16:01 97.7 102 18 143/69 94 Room Air 05/23/17 16:00 104 05/23/17 15:11 96 16 98 Nasal Cannula 3.0 32 05/23/17 15:04 98 16 93 Nasal Cannula 3.0 32 Intake and Output 05/24/17 05/25/17 19:00 07:00 # Bowel Movements 1 General Appearance: WD/WN HEENT: normocephalic, atraumatic Respiratory/Chest: chest wall non-tender, lungs clear Breasts: no masses Cardiovascular: normal peripheral pulses Genitourinary: normal external genitalia Extremities: no cyanosis Skin: no rash, no ulcers Neurologic/Psychiatric: senior category manager II-XII grossly normal Lymphatic: no neck adenopathy Microbiology Date/Time Source Procedure Growth Status 05/23/17 19:00 Sputum Gram Stain - Final Resulted 05/23/17 19:00 Sputum Sputum Culture Pending Resulted 05/23/17 12:30 Urine,Clean Catch Urine Culture - Preliminary NO GROWTH Resulted Laboratory Tests 05/23/17 20:00: Troponin I 0.116H 05/24/17 05:10: Troponin I 0.084H, White Blood Count 6.2, Red Blood Count 3.16L, Hemoglobin 9.1L , Hematocrit 30.7L, Mean Corpuscular Volume 97, Mean Corpuscular Hemoglobin 28.8 , Mean Corpuscular Hemoglobin Concent 29.7L, Red Cell Distribution Width 16.1H, Platelet Count 232, Mean Platelet Volume 6.1L, Neutrophils (%) (Auto) 47.8, Lymphocytes (%) (Auto) 34.1, Monocytes (%) (Auto) 12.9H, Eosinophils (%) (Auto) 3.6H, Basophils (%) (Auto) 1.5, Prothrombin Time 10.8, Prothromb Time International Ratio 1.0, Activated Partial Thromboplast Time 30, Sodium Level 141, Potassium Level 4.1, Chloride Level 106, Carbon Dioxide Level 34H, Anion Gap 1L, Blood Urea Nitrogen 8, Creatinine 0.6, Estimat Glomerular Filtration Rate , Glucose Level 104, Calcium Level 8.8, Total Bilirubin 0.3, Aspartate Amino Transf (AST/SGOT) 24, Alanine Aminotransferase (ALT/SGPT) 20, Alkaline Phosphatase 89, C-Reactive Protein, Quantitative 1.9H, Pro-B-Type Natriuretic Peptide 1194H, Total Protein 5.8L, Albumin 2.1L, Globulin 3.7, Albumin/Globulin Ratio 0.6L, Triglycerides Level 139, Cholesterol Level 171, LDL Cholesterol 103H , HDL Cholesterol 40, Cholesterol/HDL Ratio 4.3, Thyroid Stimulating Hormone ( TSH) 1.357 Current Medications Medications (Trade) Dose Ordered Sig/Emanuel Route PRN Reason Start Time Stop Time Status Last Admin Dose Admin Acetaminophen (Tylenol) 650 mg Q4H PRN ORAL FEVER 05/23/17 06:15 06/22/17 06:14 Albuterol/ Ipratropium (Albuterol/ Ipratropium) 3 ml Q4H PRN HHN Shortness of Breath 05/23/17 06:15 05/28/17 06:14 05/24/17 10:52 Aspirin (Ecotrin) 81 mg DAILY ORAL 05/23/17 19:00 06/22/17 18:59 Atorvastatin Calcium (Lipitor) 10 mg BEDTIME ORAL 05/24/17 21:00 06/23/17 20:59 Aztreonam 1 gm/ Sodium Chloride 50 ml @ 100 mls/hr EVERY 8 HOURS IVPB 05/23/17 14:00 05/30/17 13:59 05/23/17 14:14 Chlorhexidine Gluconate (Mariola-Hex 2%) 1 applic DAILY@2000 TOPIC 05/23/17 20:00 06/22/17 19:59 05/23/17 20:44 Dextrose (Dextrose 50%) STAT PRN IV Hypoglycemia 05/23/17 06:15 06/22/17 06:14 Diltiazem HCl (Cardizem) 10 mg Q1H PRN IV heart rate more than 120, 05/23/17 06:15 06/22/17 06:14 Enalaprilat (Vasotec) 2.5 mg Q6H PRN IV sbp more than 160 05/23/17 06:15 06/22/17 06:14 Enoxaparin Sodium (Lovenox) 100 mg QHS SUBQ 05/23/17 21:00 06/22/17 20:59 05/23/17 20:44 Insulin Aspart (NovoLOG) BEFORE MEALS AND HS SUBQ 05/23/17 06:30 06/22/17 06:29 05/23/17 12:38 Metoprolol Tartrate (Lopressor) 12.5 mg Q12HR ORAL 05/24/17 09:00 06/23/17 08:59 05/24/17 09:03 Nitroglycerin (Ntg) 0.4 mg Every 5 Minutes PRN SL Prn Chest Pain 05/23/17 06:15 06/22/17 06:14 Ondansetron HCl (Zofran) 4 mg Q6H PRN IVP Nausea & Vomiting 05/23/17 06:15 06/22/17 06:14 Polyethylene Glycol (Miralax) 17 gm DAILYPRN PRN ORAL Constipation 05/23/17 06:15 06/22/17 06:14 Temazepam (Restoril) 15 mg HSPRN PRN ORAL Insomnia 05/23/17 06:15 05/30/17 06:14 Trazodone HCl (Desyrel) 50 mg BEDTIME ORAL 05/23/17 21:00 06/22/17 20:59 05/23/17 20:43 CATARINA HAMILTON May 24, 2017 12:53
--- NOTE | 2017-05-24 13:59 | Infectious Diseases Prog Note ---
Assessment/Plan Assessment/Plan ASSESSMENT: The patient is an 89-year-old female with Mild leukocytosis, SP Pneumonia ( post obst Pna ) CT: Densely consolidated and collapsed segment medial aspect of the right upper lobe and Possible pneumonia left lung base with a small parapneumonic effusion. Cough / productive History of allergies to Zithromax and penicillin (rash). The patient has been tolerating cephalosporin. Hypertension. Diabetes. History of lung cancer. Hyperlipidemia. NSTEMI. History of DVT. Pleural effusion. History of pancreatitis PLAN: continue the patient on intravenous aztreonam d # 2 Monitor CBC. Monitor BMP. Monitor cultures (sputum and urine) [facility] old records and previous cultures. Subjective Allergies: Coded Allergies: AZITHROMYCIN (Verified Allergy, Unknown, 05/22/17) CICLESONIDE (Verified Allergy, Unknown, 05/22/17) CODEINE (Verified Allergy, Unknown, 09/25/11) METHYLPREDNISOLONE (Verified Allergy, Unknown, 05/22/17) PENICILLINS (Verified Allergy, Unknown, 09/25/11) Subjective afebrile Objective Vital Signs Last 24 Hour Vital Signs Date Time Temp Pulse Resp B/P (MAP) Pulse Ox O2 Delivery O2 Flow Rate FiO2 05/24/17 11:56 97.3 96 20 130/56 98 Nasal Cannula 2.0 05/24/17 11:10 103 20 99 Nasal Cannula 3.0 32 05/24/17 10:52 100 20 98 Nasal Cannula 3.0 32 05/24/17 09:03 105 141/65 05/24/17 08:00 97 05/24/17 08:00 97.5 105 21 141/65 95 Nasal Cannula 2.0 05/24/17 07:35 90 18 Room Air 21 05/24/17 07:35 Room Air 21 05/24/17 04:00 75 05/24/17 00:00 83 05/23/17 20:29 79 18 Nasal Cannula 3.0 05/23/17 20:29 Nasal Cannula 2.0 28 05/23/17 20:00 106 05/23/17 20:00 97.2 95 24 135/66 94 Nasal Cannula 05/23/17 16:01 97.7 102 18 143/69 94 Room Air 05/23/17 16:00 104 05/23/17 15:11 96 16 98 Nasal Cannula 3.0 32 05/23/17 15:04 98 16 93 Nasal Cannula 3.0 32 Height (Feet): 5 Height (Inches): 3.00 Weight (Pounds): 163 HEENT: anicteric Respiratory/Chest: normal breath sounds Cardiovascular: regular rhythm Abdomen: no organomegaly Microbiology Date/Time Source Procedure Growth Status 05/23/17 19:00 Sputum Gram Stain - Final Resulted 05/23/17 19:00 Sputum Sputum Culture Pending Resulted 05/23/17 12:30 Urine,Clean Catch Urine Culture - Preliminary NO GROWTH Resulted Laboratory Tests Test 05/23/17 20:00 05/24/17 05:10 Troponin I 0.116 ng/mL (0.000-0.056) 0.084 ng/mL (0.000-0.056) White Blood Count 6.2 K/UL (4.8-10.8) Red Blood Count 3.16 M/UL (4.20-5.40) L Hemoglobin 9.1 G/DL (12.0-16.0) L Hematocrit 30.7 % (37.0-47.0) L Mean Corpuscular Volume 97 FL (80-99) Mean Corpuscular Hemoglobin 28.8 PG (27.0-31.0) Mean Corpuscular Hemoglobin Concent 29.7 G/DL (32.0-36.0) L Red Cell Distribution Width 16.1 % (11.6-14.8) H Platelet Count 232 K/UL (150-450) Mean Platelet Volume 6.1 FL (6.5-10.1) L Neutrophils (%) (Auto) 47.8 % (45.0-75.0) Lymphocytes (%) (Auto) 34.1 % (20.0-45.0) Monocytes (%) (Auto) 12.9 % (1.0-10.0) H Eosinophils (%) (Auto) 3.6 % (0.0-3.0) H Basophils (%) (Auto) 1.5 % (0.0-2.0) Prothrombin Time 10.8 SEC (9.30-11.50) Prothromb Time International Ratio 1.0 (0.9-1.1) Activated Partial Thromboplast Time 30 SEC (23-33) Sodium Level 141 MMOL/L (136-145) Potassium Level 4.1 MMOL/L (3.5-5.1) Chloride Level 106 MMOL/L (98-107) Carbon Dioxide Level 34 MMOL/L (21-32) H Anion Gap 1 mmol/L (5-15) L Blood Urea Nitrogen 8 mg/dL (7-18) Creatinine 0.6 MG/DL (0.55-1.30) Estimat Glomerular Filtration Rate mL/min (>60) Glucose Level 104 MG/DL (74-106) Calcium Level 8.8 MG/DL (8.5-10.1) Total Bilirubin 0.3 MG/DL (0.2-1.0) Aspartate Amino Transf (AST/SGOT) 24 U/L (15-37) Alanine Aminotransferase (ALT/SGPT) 20 U/L (12-78) Alkaline Phosphatase 89 U/L (46-116) C-Reactive Protein, Quantitative 1.9 mg/dL (0.00-0.90) H Pro-B-Type Natriuretic Peptide 1194 pg/mL (0-125) H Total Protein 5.8 G/DL (6.4-8.2) L Albumin 2.1 G/DL (3.4-5.0) L Globulin 3.7 g/dL Albumin/Globulin Ratio 0.6 (1.0-2.7) L Triglycerides Level 139 MG/DL (0-200) Cholesterol Level 171 MG/DL (< 200) LDL Cholesterol 103 mg/dL (<100) H HDL Cholesterol 40 MG/DL (40-60) Cholesterol/HDL Ratio 4.3 (3.3-4.4) Thyroid Stimulating Hormone (TSH) 1.357 uiU/mL (0.360-3.740) Current Medications Medications (Trade) Dose Ordered Sig/Emanuel Route PRN Reason Start Time Stop Time Status Last Admin Dose Admin Acetaminophen (Tylenol) 650 mg Q4H PRN ORAL FEVER 05/23/17 06:15 06/22/17 06:14 Albuterol/ Ipratropium (Albuterol/ Ipratropium) 3 ml Q4H PRN HHN Shortness of Breath 05/23/17 06:15 05/28/17 06:14 05/24/17 10:52 Aspirin (Ecotrin) 81 mg DAILY ORAL 05/23/17 19:00 06/22/17 18:59 Atorvastatin Calcium (Lipitor) 10 mg BEDTIME ORAL 05/24/17 21:00 06/23/17 20:59 Aztreonam 1 gm/ Sodium Chloride 50 ml @ 100 mls/hr EVERY 8 HOURS IVPB 05/23/17 14:00 05/30/17 13:59 05/23/17 14:14 Chlorhexidine Gluconate (Mariola-Hex 2%) 1 applic DAILY@2000 TOPIC 05/23/17 20:00 06/22/17 19:59 05/23/17 20:44 Dextrose (Dextrose 50%) STAT PRN IV Hypoglycemia 05/23/17 06:15 06/22/17 06:14 Diltiazem HCl (Cardizem) 10 mg Q1H PRN IV heart rate more than 120, 05/23/17 06:15 06/22/17 06:14 Enalaprilat (Vasotec) 2.5 mg Q6H PRN IV sbp more than 160 05/23/17 06:15 06/22/17 06:14 Enoxaparin Sodium (Lovenox) 100 mg QHS SUBQ 05/23/17 21:00 06/22/17 20:59 05/23/17 20:44 Insulin Aspart (NovoLOG) BEFORE MEALS AND HS SUBQ 05/23/17 06:30 06/22/17 06:29 05/23/17 12:38 Metoprolol Tartrate (Lopressor) 12.5 mg Q12HR ORAL 05/24/17 09:00 06/23/17 08:59 05/24/17 09:03 Nitroglycerin (Ntg) 0.4 mg Every 5 Minutes PRN SL Prn Chest Pain 05/23/17 06:15 06/22/17 06:14 Ondansetron HCl (Zofran) 4 mg Q6H PRN IVP Nausea & Vomiting 05/23/17 06:15 06/22/17 06:14 Polyethylene Glycol (Miralax) 17 gm DAILYPRN PRN ORAL Constipation 05/23/17 06:15 06/22/17 06:14 Temazepam (Restoril) 15 mg HSPRN PRN ORAL Insomnia 05/23/17 06:15 05/30/17 06:14 Trazodone HCl (Desyrel) 50 mg BEDTIME ORAL 05/23/17 21:00 06/22/17 20:59 05/23/17 20:43 SIDRA ALLEN M.D. May 24, 2017 13:59
--- NOTE | 2017-05-24 14:13 | Diagnostic Imaging Report ---
Indication: Dyspnea Comparison: 05/23/17 A single view chest radiograph was obtained. Findings: There is evidence of a left pleural effusion with worsening atelectasis the left lower lobe. Interstitial edema suspected. Bones are osteopenic. PICC line is stable. Impression: Worsening left basilar atelectasis Interstitial Edema slight worse
[2017-05-24 16:00] VITALS: BP 148/60
[2017-05-24] MEDS ORDERED: NS 275ml ONE (17:01)
[2017-05-24] MEDS ORDERED: Tubing IV Secondary IV ONE (17:01)
[2017-05-24] MEDS: Dyna-Hex 2% Top Sol 2oz TOPIC SCH (20:09)
[2017-05-24] MEDS: TraZODone 50mg tab ORAL SCH (20:09)
[2017-05-24 20:15] VITALS: BP 145/62
[2017-05-24] MEDS: Enoxaparin 100mg Inj SUBQ SCH (20:16)
[2017-05-25 00:41] VITALS: BP 127/57
[2017-05-25] MEDS: NovoLOG Insulin Flexpen SUBQ SCH ×2 (06:04→11:30)
[2017-05-25] MEDS: Aztreonam Inj 1 GM in NS 50 ML IVPB SCH ×2 (06:10→14:00)
[2017-05-25 08:00] VITALS: BP 155/63
[2017-05-25 09:19] LABS: BASOPHILS % (AUTO) 1.2 % (0.0-2.0); EOSINOPHILS % (AUTO) 2.3 % (0.0-3.0); LYMPHOCYTES % (AUTO) 34.1 % (20.0-45.0); MEAN CORPUSCULAR HEMOGLOBIN 29.2 PG (27.0-31.0); MEAN CORPUSCULAR VOLUME 97 FL (80-99); MEAN PLATELET VOLUME 6.3 FL (6.5-10.1); NEUTROPHILS % (AUTO) 51.4 % (45.0-75.0); PLATELET COUNT 260 K/UL (150-450); RED BLOOD COUNT 3.61 M/UL (4.20-5.40); RED CELL DISTRIBUTION WIDTH 16.1 % (11.6-14.8); WHITE BLOOD COUNT 8.6 K/UL (4.8-10.8)
[2017-05-25] MEDS: Albuterol/Ipratropium 3ml neb HHN PRN (09:21)
[2017-05-25 09:24] LABS: ALANINE AMINOTRANSFERASE 20 U/L (12-78); ALBUMIN/GLOBULIN RATIO 0.6 (1.0-2.7); ANION GAP 4 mmol/L (5-15); ASPARTATE AMINO TRANSFERASE 26 U/L (15-37); CALCIUM 9.4 MG/DL (8.5-10.1); CARBON DIOXIDE 32 MMOL/L (21-32); CHLORIDE 104 MMOL/L (98-107); CREATININE 0.7 MG/DL (0.55-1.30); CRP QUANT 1.8 mg/dL (0.00-0.90); MAGNESIUM 1.5 MG/DL (1.8-2.4); PHOSPHORUS 3.1 MG/DL (2.5-4.9); POTASSIUM 4.2 MMOL/L (3.5-5.1); SODIUM 140 MMOL/L (136-145); TOTAL PROTEIN 6.7 G/DL (6.4-8.2)
[2017-05-25] MEDS: Metoprolol Tartrate 12.5mg TAB ORAL SCH (09:55)
[2017-05-25 10:38] LABS: ERYTHROCYTE SEDIMENTATION RATE 105 MM/HR (0-42)
[2017-05-25] MEDS ORDERED: LOPRESSOR25 M1 ORAL (11:24)
[2017-05-25] MEDS ORDERED: LOVENOX10 M3 SUBQ (11:27)
--- NOTE | 2017-05-25 11:31 | Pulmonology Progress Note ---
Assessment/Plan Problems: (1) Pneumonia (2) ACS (acute coronary syndrome) (3) At high risk for aspiration (4) History of DVT (deep vein thrombosis) (5) Diabetes mellitus (6) History of lung cancer (7) COPD (chronic obstructive pulmonary disease) Assessment/Plan she refusing insulin refused stress studies wants to go home dc planning in progress. for dc home today with HH/ Subjective ROS Limited/Unobtainable: No Constitutional: Reports: no symptoms HEENT: Repors: no symptoms Respiratory: Reports: no symptoms Allergies: Coded Allergies: AZITHROMYCIN (Verified Allergy, Unknown, 05/22/17) CICLESONIDE (Verified Allergy, Unknown, 05/22/17) CODEINE (Verified Allergy, Unknown, 09/25/11) METHYLPREDNISOLONE (Verified Allergy, Unknown, 05/22/17) PENICILLINS (Verified Allergy, Unknown, 09/25/11) Objective Last 24 Hour Vital Signs Date Time Temp Pulse Resp B/P (MAP) Pulse Ox O2 Delivery O2 Flow Rate FiO2 05/25/17 09:55 89 155/63 05/25/17 09:23 89 20 Nasal Cannula 2.0 28 05/25/17 09:23 Nasal Cannula 2.0 28 05/25/17 09:23 97 Nasal Cannula 2.0 28 05/25/17 08:00 96.6 87 20 155/63 97 Nasal Cannula 2.0 05/25/17 04:00 65 05/25/17 00:41 97.9 79 18 127/57 99 Room Air 05/25/17 00:00 69 05/24/17 20:15 97.0 89 18 145/62 97 Room Air 05/24/17 20:13 90 142/61 05/24/17 20:00 87 05/24/17 19:47 98 Nasal Cannula 2.0 28 05/24/17 19:47 Nasal Cannula 2.0 28 05/24/17 19:47 92 18 Nasal Cannula 2.0 28 05/24/17 16:00 97.2 85 20 148/60 95 Nasal Cannula 2.0 05/24/17 16:00 88 05/24/17 12:00 96 05/24/17 11:56 97.3 96 20 130/56 98 Nasal Cannula 2.0 Intake and Output 05/25/17 05/26/17 19:00 07:00 Output Total 400 ml Balance -400 ml Output Urine Total 400 ml # Bowel Movements 1 General Appearance: WD/WN HEENT: normocephalic, atraumatic Respiratory/Chest: chest wall non-tender, lungs clear Breasts: no masses Cardiovascular: normal peripheral pulses Abdomen: normal bowel sounds, soft, non tender Genitourinary: normal external genitalia Extremities: no clubbing Skin: no rash Microbiology Date/Time Source Procedure Growth Status 05/23/17 19:00 Sputum Gram Stain - Final Resulted 05/23/17 19:00 Sputum Sputum Culture - Preliminary NORMAL UPPER RESPIRATORY ECHO AT 24 ... Resulted 05/23/17 01:57 Nasal Nares MRSA Culture - Final NO METHICILLIN RESISTANT STAPH AUREUS... Complete 05/23/17 12:30 Urine,Clean Catch Urine Culture - Preliminary Mixed Gram Positive Organism Resulted Laboratory Tests 05/25/17 08:55: White Blood Count 8.6, Red Blood Count 3.61L, Hemoglobin 10.5L, Hematocrit 35.1L , Mean Corpuscular Volume 97, Mean Corpuscular Hemoglobin 29.2, Mean Corpuscular Hemoglobin Concent 30.0L, Red Cell Distribution Width 16.1H, Platelet Count 260, Mean Platelet Volume 6.3L, Neutrophils (%) (Auto) 51.4, Lymphocytes (%) (Auto) 34.1, Monocytes (%) (Auto) 11.0H, Eosinophils (%) (Auto) 2.3, Basophils (%) (Auto) 1.2, Erythrocyte Sedimentation Rate 105H, Sodium Level 140, Potassium Level 4.2, Chloride Level 104, Carbon Dioxide Level 32, Anion Gap 4L, Blood Urea Nitrogen 11, Creatinine 0.7, Estimat Glomerular Filtration Rate , Glucose Level 182H, Calcium Level 9.4, Phosphorus Level 3.1, Magnesium Level 1.5L, Total Bilirubin 0.3, Aspartate Amino Transf (AST/SGOT) 26 , Alanine Aminotransferase (ALT/SGPT) 20, Alkaline Phosphatase 103, Troponin I 0.075H, C-Reactive Protein, Quantitative 1.8H, Total Protein 6.7, Albumin 2.4L, Globulin 4.3, Albumin/Globulin Ratio 0.6L Current Medications Medications (Trade) Dose Ordered Sig/Emanuel Route PRN Reason Start Time Stop Time Status Last Admin Dose Admin Acetaminophen (Tylenol) 650 mg Q4H PRN ORAL FEVER 05/23/17 06:15 06/22/17 06:14 Albuterol/ Ipratropium (Albuterol/ Ipratropium) 3 ml Q4H PRN HHN Shortness of Breath 05/23/17 06:15 05/28/17 06:14 05/25/17 09:21 Atorvastatin Calcium (Lipitor) 10 mg BEDTIME ORAL 05/24/17 21:00 06/23/17 20:59 Aztreonam 1 gm/ Sodium Chloride 50 ml @ 100 mls/hr EVERY 8 HOURS IVPB 05/23/17 14:00 05/30/17 13:59 05/25/17 06:10 Chlorhexidine Gluconate (Mariola-Hex 2%) 1 applic DAILY@2000 TOPIC 05/23/17 20:00 06/22/17 19:59 05/24/17 20:09 Dextrose (Dextrose 50%) STAT PRN IV Hypoglycemia 05/23/17 06:15 06/22/17 06:14 Diltiazem HCl (Cardizem) 10 mg Q1H PRN IV heart rate more than 120, 05/23/17 06:15 06/22/17 06:14 Enalaprilat (Vasotec) 2.5 mg Q6H PRN IV sbp more than 160 05/23/17 06:15 06/22/17 06:14 Enoxaparin Sodium (Lovenox) 100 mg QHS SUBQ 05/23/17 21:00 06/22/17 20:59 05/24/17 20:16 Insulin Aspart (NovoLOG) BEFORE MEALS AND HS SUBQ 05/23/17 06:30 06/22/17 06:29 05/23/17 12:38 Metoprolol Tartrate (Lopressor) 12.5 mg Q12HR ORAL 05/24/17 09:00 06/23/17 08:59 05/25/17 09:55 Nitroglycerin (Ntg) 0.4 mg Every 5 Minutes PRN SL Prn Chest Pain 05/23/17 06:15 06/22/17 06:14 Ondansetron HCl (Zofran) 4 mg Q6H PRN IVP Nausea & Vomiting 05/23/17 06:15 06/22/17 06:14 Polyethylene Glycol (Miralax) 17 gm DAILYPRN PRN ORAL Constipation 05/23/17 06:15 06/22/17 06:14 Temazepam (Restoril) 15 mg HSPRN PRN ORAL Insomnia 05/23/17 06:15 05/30/17 06:14 Trazodone HCl (Desyrel) 50 mg BEDTIME ORAL 05/23/17 21:00 06/22/17 20:59 05/24/17 20:09 CATARINA HAMILTON May 25, 2017 11:31
--- NOTE | 2017-05-25 11:36 | Infectious Diseases Prog Note ---
Assessment/Plan Assessment/Plan ASSESSMENT: The patient is an 89-year-old female with Mild leukocytosis, SP Pneumonia ( post obst Pna ) CT: Densely consolidated and collapsed segment medial aspect of the right upper lobe and Possible pneumonia left lung base with a small parapneumonic effusion. Cough / productive improving History of allergies to Zithromax and penicillin (rash). The patient has been tolerating cephalosporin. +ve UCx : mixed GNR ( contaminant ) Hypertension. Diabetes. History of lung cancer. Hyperlipidemia. NSTEMI. History of DVT. Pleural effusion. History of pancreatitis PLAN: continue the patient on intravenous aztreonam d # 3 / , upon DC will change to Levaquin 750 to complete the course Monitor CBC. Monitor BMP. Monitor cultures (sputum ) requested [facility] old records and previous cultures: P Subjective Allergies: Coded Allergies: AZITHROMYCIN (Verified Allergy, Unknown, 05/22/17) CICLESONIDE (Verified Allergy, Unknown, 05/22/17) CODEINE (Verified Allergy, Unknown, 09/25/11) METHYLPREDNISOLONE (Verified Allergy, Unknown, 05/22/17) PENICILLINS (Verified Allergy, Unknown, 09/25/11) Subjective pt wants to go home Objective Vital Signs Last 24 Hour Vital Signs Date Time Temp Pulse Resp B/P (MAP) Pulse Ox O2 Delivery O2 Flow Rate FiO2 05/25/17 09:55 89 155/63 05/25/17 09:23 89 20 Nasal Cannula 2.0 28 05/25/17 09:23 Nasal Cannula 2.0 28 05/25/17 09:23 97 Nasal Cannula 2.0 28 05/25/17 08:00 96.6 87 20 155/63 97 Nasal Cannula 2.0 05/25/17 04:00 65 05/25/17 00:41 97.9 79 18 127/57 99 Room Air 05/25/17 00:00 69 05/24/17 20:15 97.0 89 18 145/62 97 Room Air 05/24/17 20:13 90 142/61 05/24/17 20:00 87 05/24/17 19:47 98 Nasal Cannula 2.0 28 05/24/17 19:47 Nasal Cannula 2.0 28 05/24/17 19:47 92 18 Nasal Cannula 2.0 28 05/24/17 16:00 97.2 85 20 148/60 95 Nasal Cannula 2.0 05/24/17 16:00 88 05/24/17 12:00 96 05/24/17 11:56 97.3 96 20 130/56 98 Nasal Cannula 2.0 Height (Feet): 5 Height (Inches): 3.00 Weight (Pounds): 163 HEENT: anicteric Respiratory/Chest: no accessory muscle use Cardiovascular: regularly irregular Abdomen: no organomegaly Microbiology Date/Time Source Procedure Growth Status 05/23/17 19:00 Sputum Gram Stain - Final Resulted 05/23/17 19:00 Sputum Sputum Culture - Preliminary NORMAL UPPER RESPIRATORY ECHO AT 24 ... Resulted 05/23/17 01:57 Nasal Nares MRSA Culture - Final NO METHICILLIN RESISTANT STAPH AUREUS... Complete 05/23/17 12:30 Urine,Clean Catch Urine Culture - Preliminary Mixed Gram Positive Organism Resulted Laboratory Tests Test 05/25/17 08:55 White Blood Count 8.6 K/UL (4.8-10.8) Red Blood Count 3.61 M/UL (4.20-5.40) L Hemoglobin 10.5 G/DL (12.0-16.0) L Hematocrit 35.1 % (37.0-47.0) L Mean Corpuscular Volume 97 FL (80-99) Mean Corpuscular Hemoglobin 29.2 PG (27.0-31.0) Mean Corpuscular Hemoglobin Concent 30.0 G/DL (32.0-36.0) L Red Cell Distribution Width 16.1 % (11.6-14.8) H Platelet Count 260 K/UL (150-450) Mean Platelet Volume 6.3 FL (6.5-10.1) L Neutrophils (%) (Auto) 51.4 % (45.0-75.0) Lymphocytes (%) (Auto) 34.1 % (20.0-45.0) Monocytes (%) (Auto) 11.0 % (1.0-10.0) H Eosinophils (%) (Auto) 2.3 % (0.0-3.0) Basophils (%) (Auto) 1.2 % (0.0-2.0) Erythrocyte Sedimentation Rate 105 MM/HR (0-42) H Sodium Level 140 MMOL/L (136-145) Potassium Level 4.2 MMOL/L (3.5-5.1) Chloride Level 104 MMOL/L (98-107) Carbon Dioxide Level 32 MMOL/L (21-32) Anion Gap 4 mmol/L (5-15) L Blood Urea Nitrogen 11 mg/dL (7-18) Creatinine 0.7 MG/DL (0.55-1.30) Estimat Glomerular Filtration Rate mL/min (>60) Glucose Level 182 MG/DL (74-106) H Calcium Level 9.4 MG/DL (8.5-10.1) Phosphorus Level 3.1 MG/DL (2.5-4.9) Magnesium Level 1.5 MG/DL (1.8-2.4) L Total Bilirubin 0.3 MG/DL (0.2-1.0) Aspartate Amino Transf (AST/SGOT) 26 U/L (15-37) Alanine Aminotransferase (ALT/SGPT) 20 U/L (12-78) Alkaline Phosphatase 103 U/L (46-116) Troponin I 0.075 ng/mL (0.000-0.056) C-Reactive Protein, Quantitative 1.8 mg/dL (0.00-0.90) H Total Protein 6.7 G/DL (6.4-8.2) Albumin 2.4 G/DL (3.4-5.0) L Globulin 4.3 g/dL Albumin/Globulin Ratio 0.6 (1.0-2.7) L Current Medications Medications (Trade) Dose Ordered Sig/Emanuel Route PRN Reason Start Time Stop Time Status Last Admin Dose Admin Acetaminophen (Tylenol) 650 mg Q4H PRN ORAL FEVER 05/23/17 06:15 06/22/17 06:14 Albuterol/ Ipratropium (Albuterol/ Ipratropium) 3 ml Q4H HHN 05/25/17 11:45 05/28/17 06:14 UNV Atorvastatin Calcium (Lipitor) 10 mg BEDTIME ORAL 05/24/17 21:00 06/23/17 20:59 Aztreonam 1 gm/ Sodium Chloride 50 ml @ 100 mls/hr EVERY 8 HOURS IVPB 05/23/17 14:00 05/30/17 13:59 05/25/17 06:10 Chlorhexidine Gluconate (Mariola-Hex 2%) 1 applic DAILY@1999 TOPIC 05/23/17 20:00 06/22/17 19:59 05/24/17 20:09 Dextrose (Dextrose 50%) STAT PRN IV Hypoglycemia 05/23/17 06:15 06/22/17 06:14 Diltiazem HCl (Cardizem) 10 mg Q1H PRN IV heart rate more than 120, 05/23/17 06:15 06/22/17 06:14 Enalaprilat (Vasotec) 2.5 mg Q6H PRN IV sbp more than 160 05/23/17 06:15 06/22/17 06:14 Enoxaparin Sodium (Lovenox) 100 mg QHS SUBQ 05/23/17 21:00 06/22/17 20:59 05/24/17 20:16 Insulin Aspart (NovoLOG) BEFORE MEALS AND HS SUBQ 05/23/17 06:30 06/22/17 06:29 05/23/17 12:38 Metoprolol Tartrate (Lopressor) 12.5 mg Q12HR ORAL 05/24/17 09:00 06/23/17 08:59 05/25/17 09:55 Nitroglycerin (Ntg) 0.4 mg Every 5 Minutes PRN SL Prn Chest Pain 05/23/17 06:15 06/22/17 06:14 Ondansetron HCl (Zofran) 4 mg Q6H PRN IVP Nausea & Vomiting 05/23/17 06:15 06/22/17 06:14 Polyethylene Glycol (Miralax) 17 gm DAILYPRN PRN ORAL Constipation 05/23/17 06:15 06/22/17 06:14 Temazepam (Restoril) 15 mg HSPRN PRN ORAL Insomnia 05/23/17 06:15 05/30/17 06:14 Trazodone HCl (Desyrel) 50 mg BEDTIME ORAL 05/23/17 21:00 06/22/17 20:59 05/24/17 20:09 SIDRA ALLEN M.D. May 25, 2017 11:36
[2017-05-25] MEDS ORDERED: Albuterol/Ipratropium 3ml neb HHN SCH ×2 (11:45)
[2017-05-25 12:00] VITALS: BP 149/61
[2017-05-28] MEDS ORDERED: LEVAQUIN750 MG ORAL (12:58)
--- NOTE | 2017-05-28 12:58 | Discharge Summary ---
Discharge Summary Hospital Course Date of Admission May 23, 2017 at 00:50 Date of Discharge May 25, 2017 at 14:28 Admitting Diagnosis CHEST PAIN HPI Sia Palacios is a 89 year old female who was admitted on May 23, 2017 at 00: 50 for Chest Pain Hospital Course dc summary #[id number] Discharge Medications New Medications: Levofloxacin* (Levaquin*) 750 Mg Tablet 750 MG ORAL DAILY, #4 TAB Enoxaparin* (Lovenox*) 100 Mg/Ml Inj 100 MG SUBQ QHS for 30 Days, #30 MG Metoprolol Tartrate (Metoprolol Tartrate) 25 Mg Tablet 12.5 MG ORAL Q12HR for 30 Days, TAB Continued Medications: Insulin Lispro (Humalog) 100 Unit/1 Ml Insuln.pen 0 SUBQ, #1 EA 0 Refills Ipratropium Grant 0.5MG/2.5ML (Ipratropium Grant 0.5MG/2.5ML) 0.2 Mg/1 Ml Solution 0.5 MG HHN Q8HR PRN for Shortness of Breath, #28 EA Trazodone* (Trazodone*) 150 Mg Tablet 50 MG ORAL BEDTIME, TAB Discharge Discharge Disposition Patient was discharged to Home with Home Health(06) Discharge Diagnoses: Discharge Instructions Discharge Instructions Special Instructions I have been assigned to complete a D/C Summary on this account. I was not involved in the patient management Francoise Hawk NP (Vanchtein) May 28, 2017 12:58
--- NOTE | 2017-05-29 04:15 | Discharge Summary 2 SIG ---
DATE OF ADMISSION: 05/23/2017 DATE OF DISCHARGE: 05/25/2017 REASON FOR ADMISSION: 89-year-old female with a history of lung cancer, diabetes, hypertension, hyperlipidemia, NSTEMI, and pleural effusion, presented with a complaint of chest pressure. She was given aspirin and nitroglycerin by paramedics. The patient had a long admission prior for pneumonia at [facility] and just completed three antibiotics for complicated pneumonia as per family member. Upon evaluation in the emergency room, the patient was tachycardic -133 and mild tachypnea at -22. She was on 6 liters of nasal cannula, saturated 94%. EKG revealed normal sinus rhythm, no ischemia. First troponin was within normal limits. The patient had mild leukocytosis. Stable hemoglobin and hematocrit. Mild pro BNP elevation. The patient was admitted for chest pain, rule out acute coronary syndrome. HOSPITAL COURSE: The patient was admitted to telemetry floor. Cardiology and Infectious Disease consults were requested. Serial troponin were ordered along with Echo. Second troponin elevated - 0.226 and then troponin started to come down, but last troponin still elevated. Echocardiogram revealed preserved ejection fraction of 60% to 65%, moderate left ventricular hypertrophy, and right ventricular systolic pressure of 50, consistent with a moderate pulmonary hypertension. Initial chest x-ray revealed moderate left pleural effusion, possibly superimposed infection. The patient initially was on DVT prophylaxis and then with abnormal troponin, the patient was placed on the Lovenox. According to care process manager, a pattern of abnormal troponin was concerning for underlying coronary artery disease. Troponin was improving, but not down to normal yet. According to Cardiology, the patient will need to consider ischemic evaluation once troponin back to normal, if the patient and family agreeable. The patient was continued on aspirin and statin. Lipid panel was stable. The patient was placed on low dose of beta-alfredito. Blood pressure was controlled. The patient declined to have a stress test and wanted to go home. The patient initially was on empiric antibiotics. Urine culture revealed mixed gram positive organisms. Sputum culture was negative. CT of the chest revealed possible pneumonia, small parapneumonic effusion. CT of the chest also revealed evidence of right upper lobe wedge resection. The patient had a history of radiation after surgery on the right lung. The patient was on intravenous antibiotic while in the hospital , changed to oral Levaquin as per Infectious Disease specialist recommendation prior to discharge. Followup chest x-ray revealed worsening left base atelectasis. Swallow evaluation revealed silent aspiration risk. Texture of diet was modified as per speech therapist recommendations. Glucerna was added. Strict aspiration precautions were maintained and discussed with family importance to continue them at home. Blood pressure was managed with beta-alfredito and was stable. Blood sugar was stable. Sliding scale of insulin as needed was ordered, however, the patient declined insulin. GI prophylaxis provided. Supplemental oxygen provided as needed to keep saturation above 92%. Pulmonary toilet was provided as needed. Saturation was 96% on two liters nasal cannula. The patient was stable for discharge home with home health services. FINAL DIAGNOSES: 1. Chest pain, likely related to underlying coronary artery disease. 2. Abnormal cardiac enzymes, 3. Possible underlying coronary artery disease. 4. Pneumonia. 5. Diabetes. 6. Chronic obstructive pulmonary disease. 7. Hypertension. 8. History of lung cancer. 9. Silent aspiration risk. DISCHARGE MEDICATIONS: See medication reconciliation list. DISCHARGE INSTRUCTIONS: The patient was discharged home with home health services. Follow up with primary medical doctor. Recommended to consider ischemic evaluation as recommended by care process manager if family and patient agree. Humberto Zimmer M.D. I have been assigned to dictate discharge summary on this account and I was not involved in the patient's management. Francoise GuanGlens Falls HospitalCleopatra N.PFrancois DR: Camila JOB#: [id number] CC: [id number]
--- NOTE | 2017-06-03 16:21 | Cardiology Report ---
APPROVED REPORT EKG Measurement Heart [id number] Normal sinus rhythm Normal ECG
--- NOTE | 2017-06-03 16:21 | Cardiology Report ---
APPROVED REPORT EKG Measurement Heart [id number] Normal sinus rhythm Normal ECG
== END 2017-05-25 14:28 | disposition home health service (06) | DRG 302 ==
LOC: EDBD 23:45 → EMR 23:59 → 2E 05-23 00:50 → EDBEDREQ 05-23 01:16 → 2E 05-24 13:09
DX: I25.119 Atherosclerotic heart disease of native coronary artery with unspecified angina pectoris (principal); J18.9 Pneumonia, unspecified organism; I27.20 Pulmonary hypertension, unspecified; J44.9 Chronic obstructive pulmonary disease, unspecified; E11.9 Type 2 diabetes mellitus without complications; Z86.718 Personal history of other venous thrombosis and embolism; Z79.01 Long term (current) use of anticoagulants; Z85.118 Personal history of other malignant neoplasm of bronchus and lung; E78.5 Hyperlipidemia, unspecified; I25.2 Old myocardial infarction; I10 Essential (primary) hypertension; Z88.1 Allergy status to other antibiotic agents; Z88.0 Allergy status to penicillin; Z88.6 Allergy status to analgesic agent; Z88.8 Allergy status to other drugs, medicaments and biological substances; Z79.4 Long term (current) use of insulin; Z86.73 Personal history of transient ischemic attack (TIA), and cerebral infarction without residual deficits; K21.9 Gastro-esophageal reflux disease without esophagitis; Z92.3 Personal history of irradiation; Z87.891 Personal history of nicotine dependence; Z66 Do not resuscitate
CPT/HCPCS: 36415; 71010; 71250; 80053; 80061; 82550; 82553; 82962; 83735; 83880; 84100; 84443; 84484; 85025; 85610; 85651; 85730; 86140; 87070; 87081; 87086; 87205; 93005; 93306; 94640; 94664; 94760; 99285; J1815; J7620